=== PATIENT | male | born 1990 | race Caucasian/White ===

== ENCOUNTER 2017-11-09 14:03 | Emergency (ER) | payer OTHER, SELFPAY ==
[2017-11-09 14:05] VITALS: BP 144/88; PULSE 85; RESP 16; TEMP 36.8; O2SAT 96; BMI 41.1
--- NOTE | 2017-11-09 14:37 | ED.VISSUMM ---
- ER Visit Summary Date of Service: 11/09/17 Chief Complaint: [] Left leg pain History of Present Illness: The patient is a 27 M [] complaining of left thigh pain. Denies chest pain or shortness of breath. Patient denies PE or DVT risk factors. Does have a history of varicose veins which are causing discomfort as well and more prominent. He reports they feel more warm to touch. Physical Examination: [] Symmetric appearing lower extremities. Negative Homans sign. There are mid thigh inner left-sided varicose veins that are mildly tender to palpation and mildly warm without signs of erythema or cellulitis. Remainder of exam is unremarkable. Test Results: [] It is approximately 2:40 PM on a Saturday at the time of this dictation and the Doppler audiometric technician is not available to perform this procedure. Emergency Department Course and Treatment: [] Doppler audiometric technician is not able to perform this procedure to rule out DVT in this patient. Patient was given a outpatient form with a number to call to schedule formal test within 24 hours. Treatment Plan: [] Follow-up within 24 hours. Disposition: [] Discharge, stable Impression: [] Left thigh pain, cannot rule out DVT This note was generated with [employer] dictation software. It may contain incorrect words, spelling, and punctuation that were not noted in review of the chart prior to signing ED Disposition - Plan for ED Patient: Chief Complaint: Lower Extremity Injury Referrals: Gray Mcneill, [facility] [Primary Care Provider] -
--- NOTE | 2017-11-09 14:39 | ED.DEP ---
ED Disposition - Plan for ED Patient: Chief Complaint: Lower Extremity Injury Instructions: ED Veins Varicose Referrals: Gray Mcneill, [facility] [Primary Care Provider] - Additional Instructions: Follow instructions for outpatient Doppler ultrasound study. Call [phone].
--- NOTE | 2017-11-09 14:40 | ED.DCSUM_ITS ---
- ER Visit Summary Date of Service: 11/09/17 Chief Complaint: [] Left leg pain History of Present Illness: The patient is a 27 M [] complaining of left thigh pain. Denies chest pain or shortness of breath. Patient denies PE or DVT risk factors. Does have a history of varicose veins which are causing discomfort as well and more prominent. He reports they feel more warm to touch. Physical Examination: [] Symmetric appearing lower extremities. Negative Homans sign. There are mid thigh inner left-sided varicose veins that are mildly tender to palpation and mildly warm without signs of erythema or cellulitis. Remainder of exam is unremarkable. Test Results: [] It is approximately 2:40 PM on a Saturday at the time of this dictation and the Doppler fire protection equipment technician is not available to perform this procedure. Emergency Department Course and Treatment: [] Doppler fire protection equipment technician is not able to perform this procedure to rule out DVT in this patient. Patient was given a outpatient form with a number to call to schedule formal test within 24 hours. Treatment Plan: [] Follow-up within 24 hours. Disposition: [] Discharge, stable Impression: [] Left thigh pain, cannot rule out DVT This note was generated with [employer] dictation software. It may contain incorrect words, spelling, and punctuation that were not noted in review of the chart prior to signing ED Disposition - Plan for ED Patient: Chief Complaint: Lower Extremity Injury Referrals: Gray Mcneill, [facility] [Primary Care Provider] -
--- NOTE | 2017-11-10 12:00 | VDLE_ITS ---
Reason For Study: PAIN Procedure LEFT Exam performed in department. GSV is normal. A preliminary report was called and/or faxed CFV is compressible, spontaneous, phasic, to ED. competent, and demonstrates normal augmentation. FV is compressible, spontaneous, phasic, competent and demonstrates normal augmentation. POP V is compressible, spontaneous, phasic, competent and demonstrates normal augmentation. T/P Trunk is compressible. PTV is compressible. LT PerV is compressible. Interpretation Summary Deep veins of the left lower extremity are patent and compressible segmentally. There is no evidence of left lower extremity deep vein thrombosis. Valvular competence appears intact within the proximal deep venous system on the left . The left greater saphenous vein appears patent and compressible segmentally. Ordering Physician: Tung Manzano Performed By: No Loaiza, ELIASCS, RVT
== END 2017-11-09 14:49 | disposition home or self-care (01) ==
LOC: ED 14:36
PROVIDERS: Emergency Provider Emergency Medicine; Family Provider Nurse Practitioner Family; PCP Nurse Practitioner Family
DX: M79.652 Pain in left thigh (principal); I83.812 Varicose veins of left lower extremity with pain; E66.9 Obesity, unspecified; Z68.41 Body mass index [BMI] 40.0-44.9, adult
CPT/HCPCS: 99282